=== PATIENT | female | born 1950 | race Hispanic/Latino ===

== ENCOUNTER → 2021-05-21 | Outpatient (CLI) | payer OTHER | END | disposition home or self-care (01) | LOC: RAH 15:13 | DX: J45.998 Other asthma (principal); M47.819 Spondylosis without myelopathy or radiculopathy, site unspecified | CPT/HCPCS: 71046 ==

== ENCOUNTER → 2021-09-04 | Outpatient (CLI) | payer OTHER | END | disposition home or self-care (01) | LOC: RAH 12:45 | DX: J44.9 Chronic obstructive pulmonary disease, unspecified (principal); I51.7 Cardiomegaly; R91.1 Solitary pulmonary nodule | CPT/HCPCS: 71250; 76830 ==